=== PATIENT | female | born 1965 | race Caucasian/White ===

== ENCOUNTER 2018-09-06 23:17 | Emergency (ER) | payer OTHER, MEDICAID ==
[~2018-09-06] VITALS: Ht 157.5 cm; Wt 47.9 kg
[~2018-09-06 23:17] MED LIST: AMITRIPTYLINE H25 M2 PO; CHLORPROMAZINE25 M1 PO; CORTISONE; DILANTIN100 MG PO; DILAUDID 2 MG TA2 MG PO; DUONEB 2.5-0.5 M3 ML INH; KLOR-CON 10 ER10 MEQ PO; LEVOTHYROXIN0.025 MG PO; MARINOL5 MG PO; METHADONE HCL 110 M1 PO; MORPHINE SULFAT15 M1 PO; PERCOCET 5-3251 EACH; PERCOCET 5-3251 EACH PO; PLAVIX 75 MG TA75 MG PO; VENTOLIN HFA 1818 GM INH; ZANAFLEX; ZANTAC 150MG T150 M1 PO; ZESTRIL20 MG PO; ZOCOR40 MG PO; ZOFRAN ODT4 MG DISSOLVE; ZOFRAN4 MG PO
[2018-09-07] MEDS ORDERED: ACETAMINOPHEN-1 EAC1 PO (00:36)
[2018-09-07] MEDS ORDERED: VISTARIL 25 MG25 M1 PO (00:36)
[2018-09-07 00:44] VITALS: BP 106/61
== END 2018-09-07 00:45 | disposition home or self-care (01) ==
LOC: M.ERS 23:17
DX: L50.9 Urticaria, unspecified (principal); F32.9 Major depressive disorder, single episode, unspecified; Z88.0 Allergy status to penicillin; Z88.5 Allergy status to narcotic agent; Z88.8 Allergy status to other drugs, medicaments and biological substances